=== PATIENT | female | born 1955 | race Caucasian/White ===

== ENCOUNTER 2017-01-18 21:21 | Emergency (ER) | payer OTHER ==
[~2017-01-18] VITALS: Ht 171.4 cm; Wt 110.0 kg
[2017-01-18 21:31] VITALS: BP 166/79; PULSE 72; RESP 16; O2SAT 98
--- NOTE | 2017-01-18 23:50 | ED.REPORT ---
HPI-General Illness Date of Service Jan 18, 2017 ED Provider: Dr. Teixeira Cuauhtemoc Nagel DO Pt is a 61 y/o female with a history of AK and iliac stents who presents to the ED c/o right leg pain onset today. She describes her pain as a "squeezing, aching" pain that started in her posterior mid-thigh that radiated down to her mid-calf. She came into the ED today because she was scared that her symptoms reminded her of when she had a heart attack. She states she had a busy day today and was on her feet a lot, but denies a mechanism of injury. Additional symptoms include vomiting x1, brief episodes of angina that goes away quickly and have been ongoing for several years, and difficulty walking. She denies numbness/tingling, SOB, focal weakness, headache, diarrhea, constipation, or any other symptoms. Nursing Notes Stated Complaint: LEG PAIN Chief Complaint: General Complaint Nursing Notes Reviewed: Yes Allergies: Coded Allergies: tetracycline (Verified Allergy, Intermediate, 01/18/17) TAPE (Verified Allergy, Unknown, 01/18/17) Uncoded Allergies: SULFA (Allergy, Intermediate, 01/18/17) Scheduled Abatacept (Orencia) 125 Mg/1 Ml Syringe 125 MG SUBQ WEEKLY Acetaminophen (Tylenol Arthritis) 650 Mg Tablet.er 650 MG PO PRN Albuterol HFA (Proair HFA) 8.5 Gm Hfa.aer.ad 2 PUFFS INHALATION Q4H Amlodipine (Amlodipine) 5 Mg Tablet 5 MG PO BID Aspirin Chew (Aspirin Chew) 81 Mg Chew 81 MG PO DAILY Atorvastatin (Lipitor) 80 Mg Tablet 80 MG PO HS Bupropion ER (Bupropion ER) 150 Mg Tablet.er 150 MG PO DAILY Cholecalciferol (Vitamin D3) (Vitamin D) 5,000 Unit Capsule 2,000 UNIT PO DAILY Estradiol (Estradiol) 1 Mg Tablet 1 MG PO DAILY Fluoxetine (Fluoxetine) 20 Mg Tablet 20 MG PO DAILY Levothyroxine (Levoxyl) 150 Mcg Tablet 150 MCG PO DAILY Metronidazole (Metrocream) 45 Gm Cream..g. 1 APPLIC TOP BID Scheduled PRN Azelaic Acid (Finacea) 15 % Foam 50 GM TP PRN PRN PRN PRN Lorazepam (Lorazepam) 1 Mg Tablet 1 MG PO TID PRN PRN For Anxiety Miscellaneous Medications Biotin (Biotin) 10,000 Mcg Tab.rapdis 10,000 MCG PO Cyanocobalamin (Vitamin B-12) (Vitamin B-12) 3,000 Mcg Tab.subl 3,000 MCG SL Ketoconazole (Ketoconazole) 15 Gm Cream..g. 15 GM TP Multivit, Calc, Min/Folic Acid (Multi For Her 50 Plus Softgel) 400 Mcg Capsule 400 MCG PO General Time Seen by MD: 23:50 Chief Complaint Other (R leg pain) Hx Obtained From: Patient, Spouse Arrived By: Walk-in Sudden in Onset?: Yes Onset Occurred: 1 - 4 hours ago Symptom Duration: Constant Location: : Leg right Quality: Aching, Painful Radiation: : Leg right Severity: Current: Mild Severity: Maximum: Moderate Recent Healthcare: No recent doctor visit, No recent hospitalization Similar Sx Previous: No Past Medical History Past Medical History AK Past Surgical History Iliac stents Social History Alcohol Use: "Social" Other Social History: Good social support, Ambulatory Status Independent Review of Systems Brief episodes of angina that goes away quickly Difficulty walking Full Review of Systems Respiratory: Denies: Shortness of breath GI: Reports: Vomiting (x1), Denies: Constipation, Diarrhea Musculoskeletal: Reports: Extremity pain (R leg pain) Neurologic: Denies: Focal weakness, Headache, Numbness Complete sys rev & neg: except as marked. Physical Exam Vital Signs Vital Signs Date Time Temp Pulse Resp B/P Pulse Ox O2 Delivery O2 Flow Rate FiO2 01/19/17 02:54 66 18 165/92 97 Room Air 01/18/17 21:31 37.1 72 16 166/79 98 Room Air Initial VS: Reviewed Head / Eyes: Atraumatic, Normocephalic Neck: Supple, Full range of motion Abdomen / GI: Soft, Non-tender Extremities: Vascular intact, Neuro intact, No swelling, No tenderness Skin: Warm, Dry, No cyanosis Neurologic: Alert, Oriented, Nonfocal Psychiatric: Mood/affect normal, Behavior normal, Normal thought content General/Constitutional: Awake, Alert Respiratory / Chest: Atraumatic, Breath sounds NL, Breath sounds = bilat, No respiratory distress Cardiovascular: Heart rate NL, Regular rhythm, Heart sounds NL 1/4 posterior tibial pulse 1/4 dorsalis pedis pulse 2 second cap refill in right foot, 2-3 second cap refll in left foot Lower Extremity / Pelvis / MS: Neurologic intact, Vascular intact Bilateral lower leg cool Interpretation & Diagnostics Interpretation & Diagnostics: Left lower extremity arterial Doppler Reported by Allied health professional. 70% flow at proximal end and down to 15% at distal end. No areas of occlusion/obstruction noted drier tender radiology read shows: Conclusion: There is calcified plaque identified within the common femoral artery. The patient demonstrates monophasic low resistance flow throughout the left lower extremity. The greatest velocity was seen in the proximal superficial femoral artery with the velocity 76 cm/s. The lowest velocity was approximately 15-16 cm/s in the posterior tibial artery and dorsalis pedis. No high-grade stenosis or occlusion is identified. Dr. Dejuan Johnson Lab Results Interpretation Result Diagram: 01/19/175 01/19/175 Test 01/19/17 00:45 White Blood Count 8.5th/mm3 (3.8-10.1) Red Blood Count 4.35mil/mm3 (3.90-5.20) Hemoglobin 11.2g/dL (12.0-15.6) Hematocrit 34.4% (35.0-46.0) Mean Corpuscular Volume 79.1fL (81-100) Mean Corpuscular Hemoglobin 25.7pg (27.0-35.0) Mean Corpuscular Hemoglobin Concent 32.6% (32.0-37.0) Red Cell Distribution Width 15.4% (12.3-15.4) Platelet Count 305bil/L (150-400) Neutrophils (%) (Auto) 67.5% (40-74) Lymphocytes (%) (Auto) 22.0% (14-46) Monocytes (%) (Auto) 9.1% (4-12) Eosinophils (%) (Auto) 0.7% (0-5) Basophils (%) (Auto) 0.5% (0-3) Sodium Level 140mEq/L (134-144) Potassium Level 3.7mEq/L (3.5-5.2) Chloride Level 101mEq/L (97-108) Carbon Dioxide Level 20mmol/L (18-29) Blood Urea Nitrogen 22mg/dL (6-24) Creatinine 1.00mg/dL (0.57-1.00) Estimat Glomerular Filtration Rate 81mL/min (>59) Glucose Level 107mg/dL (60-99) Calcium Level 9.7mg/dL (8.5-10.1) Total Bilirubin 0.6mg/dL (0.0-1.2) Aspartate Amino Transf (AST/SGOT) 21U/L (0-50) Alanine Aminotransferase (ALT/SGPT) 16U/L (0-32) Alkaline Phosphatase 134U/L (25-165) Total Protein 7.5g/dL (6.4-8.4) Albumin 4.4g/dL (3.4-5.0) Hold Meyers Top Tube Received (Received) Re-Eval/Medical Decision Med Decision/Clinical Course 61-year-old female with history of coronary artery disease, peripheral vascular disease with a history of bilateral iliac stents who is currently undergoing routine monitoring for her peripheral vascular disease with vascular surgery at [facility] presents with sudden onset left posterior thigh pain/ pressure that feels similar to "heart attack in her leg" this pain resolved prior to my evaluation of her in the ER, but upon ambulating here she again developed leg pain although not as severe. She has capillary refill less than 3 seconds, and 1 out of 4 dorsalis pedis and posterior tibial pulses on the left side. I ordered an ultrasound of her arteries of the left lower extremity which returned without occlusion, although she did have some chronically diminished flow. There were no electrolyte abnormalities to explain alternatively leg cramps. She will follow-up with her vascular surgeon within the next week. Source of Hx: Old records Time of Eval: 01:45 Re-Evaluation/Progress Note: Patient rechecked. Discussed plan for discharge. Patient understands and agrees with plan. F/U instructions and RTER warnings given. All questions addressed at this time. Counseled Regarding: Diagnosis, Lab results, Need for follow-up, When/why to return to ED Discharge & Departure Primary Impression: Peripheral vascular disease Additional Impression: Left thigh pain Ruled Out: Vascular occlusion Disposition: Home Discharge Condition All VS Reviewed: Yes Condition: Stable Patient Instructions: Peripheral Vascular Disease (ED) Additional Instructions: Thank you for trusting us with your care today. We were not able to identify any dangerous causes for your leg pain including a vascular occlusion. Please follow-up with your vascular surgeon within the next week to review the ultrasound results and the symptoms you are experiencing. A medication that could be considered is pentoxifylline. Return to the ER for new or worsening symptoms Referrals: OTHER,PHYSICIAN (PCP) (Family) Scribe Attestation Portions of this note were transcribed by Melissa Hogan. I, Dr. Teixeira, personally performed the history, physical exam and medical decision-making; I reviewed and confirmed the accuracy of the information in the transcribed note. copies to: PHYSICIAN Lluvai HOGUE Gary R DO Jan 18, 2017 23:50 Melissa Hogan Jan 19, 2017 00:18
[2017-01-19] MEDS ORDERED: ATOR80TA PO (00:10)
[2017-01-19] MEDS ORDERED: ACET-2766 PO (00:10)
[2017-01-19] MEDS ORDERED: LEVO150T46 PO (00:10)
[2017-01-19] MEDS ORDERED: BIOT10002 PO (00:10)
[2017-01-19] MEDS ORDERED: ALBU8.5H2 INHALATION (00:10)
[2017-01-19] MEDS ORDERED: FLUO20TA28 PO (00:10)
[2017-01-19] MEDS ORDERED: CYAN30003 SL (00:10)
[2017-01-19] MEDS ORDERED: ABAT125S SUBQ (00:10)
[2017-01-19] MEDS ORDERED: ESTR1TAB24 PO (00:10)
[2017-01-19] MEDS ORDERED: KTC2C15 TP (00:10)
[2017-01-19] MEDS ORDERED: CHOL500051 PO (00:10)
[2017-01-19] MEDS ORDERED: METR45CR2 TOP (00:10)
[2017-01-19] MEDS ORDERED: ASPI81TA3 PO (00:10)
[2017-01-19] MEDS ORDERED: AMLO5TAB2 PO (00:10)
[2017-01-19] MEDS ORDERED: LORA1TAB PO (00:10)
[2017-01-19] MEDS ORDERED: BUPR150T12 PO (00:10)
[2017-01-19] MEDS ORDERED: AZEL50FO TP (00:10)
[2017-01-19] MEDS ORDERED: MULT400C3 PO (00:10)
[2017-01-19 00:48] LABS: BASOPHILS % (AUTO) 0.5 % (0-3); EOSINOPHILS % (AUTO) 0.7 % (0-5); MONOCYTES % (AUTO) 9.1 % (4-12); Mean Corpuscular Hemoglobin 25.7 pg (27.0-35.0); Mean Corpuscular Volume 79.1 fL (81-100); NEUTROPHILS % (AUTO) 67.5 % (40-74); Platelet Count 305 bil/L (150-400)
[2017-01-19 02:54] VITALS: BP 165/92; PULSE 66; RESP 18; O2SAT 97
--- NOTE | 2017-01-19 08:13 | DRSVH ---
PROCEDURE: US DUPLEX DOPPLER UNILATERAL LEG ARTERIES, LEFT INDICATIONS: diminished pulses, severe claudication, PVD TECHNIQUE: Color and pulse Doppler interrogation was performed of the left lower extremity arterial system, with image documentation. COMPARISON: None. FINDINGS: Vascular Ultrasound Procedure Report Findings(Artery of Lower Extremity)(Left) Common Femoral Artery(Distal) Velocity: 70.20 cm/s Profunda Femoris Artery(Proximal) Velocity: 63.20 cm/s Superficial Femoral Artery(Proximal) Velocity: 76.40 cm/s Superficial Femoral Artery(Mid-longitudinal) Velocity: 47.50 cm/s Superficial Femoral Artery(Distal) Velocity: 34.70 cm/s Popliteal Artery(Mid-longitudinal) Velocity: 31.30 cm/s Posterior Tibial Artery(Distal) Velocity: 16.10 cm/s Dorsalis Pedis Artery(Distal) Velocity: 14.60 cm/s Greyscale findings: Eccentric, calcified atherosclerotic plaque noted in the left common femoral radha ry. IMPRESSION: No hemodynamically significant stenosis identified in the left lower extremity, however f low in the left lower extremity is monophasic/low resistance and significant inflow disease cannot be excluded. Dictated by: Juana Wu MD, PhD on 01/19/2017 at 8:09 Approved by: Juana Wu MD, PhD on 01/19/2017 at 8:12
== END 2017-01-19 02:54 | disposition home or self-care (01) ==
LOC: SED 21:21
DX: I73.9 Peripheral vascular disease, unspecified (principal); M79.652 Pain in left thigh; I25.2 Old myocardial infarction; Z79.82 Long term (current) use of aspirin; Z88.1 Allergy status to other antibiotic agents; Z88.2 Allergy status to sulfonamides